=== PATIENT | male | born 1980 | race Caucasian/White ===

== ENCOUNTER 2018-06-16 13:10 | Emergency (ER) | payer SELFPAY ==
[~2018-06-16] VITALS: Ht 175.3 cm; Wt 104.5 kg
[2018-06-16 13:13] VITALS: TEMP 97.3
[2018-06-16 13:54] LABS: BASO # 0.1 (0.0-0.2); BASO % 0.7 % (0.0-2.0); EOS # 0.2 (0.0-0.7); EOS % 2.6 % (0-4.0); GRAN # 4.1 (1.4-6.5); GRAN % 47.6 % (42.2-75.2); HEMATOCRIT 44.4 % (42.0-52.0); HEMOGLOBIN 15.2 g/dl (13.5-18.0); LYMPH # 3.6 (1.2-3.4); LYMPH % 41.6 % (20.0-51.0); MEAN CELL VOLUME 94 fl (80.0-100.0); MEAN CORPUSCULAR HEMOGLOBIN 32 pg (27.0-31.0); MEAN CORPUSCULAR HGB CONC 34 g/dl (33.0-37.0); MEAN PLATELET VOLUME 9.7 fl (7.4-10.4); MONO # 0.6 (0.1-0.6); MONO % 6.8 % (1.7-9.3); PLATELET COUNT 318 K/mm3 (130-400); RED BLOOD COUNT 4.75 M/mm3 (4.20-5.60); REDCELL DISTRIBUTION WIDTH-CV 11.9 % (11.5-14.5)
[2018-06-16 13:56] LABS: COLLECTION METHOD CLEAN CATCH
[2018-06-16 14:01] LABS: PH 5 (5-8); SQUAMOUS EPITHELIAL None Seen /hpf; URINE APPEARANCE Clear; URINE BACTERIA None Seen /hpf; URINE BILIRUBIN Negative (NEGATIVE); URINE BLOOD Negative (NEGATIVE); URINE COLOR Colorless; URINE GLUCOSE Negative (NEGATIVE); URINE KETONE Negative (NEGATIVE); URINE LEUKOCYTE ESTERASE Negative (NEGATIVE); URINE NITRATE Negative (NEGATIVE); URINE PROTEIN(semi-quant) Negative (NEGATIVE); URINE RBC 0-2 /hpf; URINE UROBILINOGEN Negative (NEGATIVE)
[2018-06-16 14:05] LABS: ALANINE AMINOTRANSFERASE 44 U/L (21-72); ALBUMIN 4.6 gm/dL (3.5-5.0); ALCOHOL(ethanol),MEDICAL 246 mg/dL; ALKALINE PHOSPHATASE 63 U/L (50-136); ANION GAP 10 mmol/L (7-16); AST,SGOT 40 U/L (15-37); BILIRUBIN,TOTAL 0.4 mg/dL (0.0-1.0); BLOOD UREA NITROGEN 13 mg/dL (9-20); CALCIUM 9.1 mg/dL (8.4-10.2); CARBON DIOXIDE 22 mmol/L (22-30); CHLORIDE 111 mmol/L (98-107); CREATININE, serum 0.74 mg/dL (0.66-1.25); GLUCOSE 88 mg/dL (74-106); LIPASE 132 U/L (23-300); MAGNESIUM 2.2 mg/dL (1.6-2.3); POTASSIUM 4.5 mmol/L (3.4-5.0); SODIUM 143 mmol/L (137-145); TOTAL PROTEIN 8.5 gm/dL (6.4-8.2)
[2018-06-16 14:07] LABS: ACETAMINOPHEN < 10 ug/mL (10-30); SALICYLATE < 1.0 mg/dL
[2018-06-16 14:10] LABS: TRICYCLIC ANTIDEPRESS URINE NEGATIVE
[2018-06-16 14:35] LABS: TSH w REFLEX 0.351 uIU/mL (0.465-4.680)
[2018-06-16 23:47] VITALS: BP 137/72; PULSE 106
== END 2018-06-16 23:48 | disposition home or self-care (01) ==
LOC: COL.ER 13:10
PROVIDERS: Emergency Medicine
DX: F20.0 Paranoid schizophrenia (principal); F10.129 Alcohol abuse with intoxication, unspecified; Y90.3 Blood alcohol level of 60-79 mg/100 ml
CPT/HCPCS: J3411; J7030

== ENCOUNTER 2019-05-10 03:23 | Emergency (ER) | payer SELFPAY ==
[~2019-05-10] VITALS: Ht 180.3 cm; Wt 86.4 kg
[2019-05-10 03:30] VITALS: TEMP 97.6
[2019-05-10] MEDS ORDERED: LIBRIUM 25M25 MG/CAP PO ×2 (03:36→07:00)
[2019-05-10] MEDS ORDERED: NEURONTIN300 MG/CAP PO (03:36)
[2019-05-10 04:03] LABS: HEMATOCRIT 45.8 % (42.0-52.0); HEMOGLOBIN 15.5 g/dl (13.5-18.0); MEAN CELL VOLUME 97 fl (80.0-100.0); MEAN CORPUSCULAR HEMOGLOBIN 33 pg (27.0-31.0); MEAN CORPUSCULAR HGB CONC 34 g/dl (33.0-37.0); MEAN PLATELET VOLUME 9.6 fl (7.4-10.4); PLATELET COUNT 237 K/mm3 (130-400); RED BLOOD COUNT 4.73 M/mm3 (4.20-5.60); REDCELL DISTRIBUTION WIDTH-CV 12.4 % (11.5-14.5)
[2019-05-10 04:13] LABS: ALBUMIN 4.7 gm/dL (3.5-5.0); BILIRUBIN,TOTAL 0.3 mg/dL (0.0-1.0); CALCIUM 9.7 mg/dL (8.4-10.2); CREATININE, serum 0.98 (0.66-1.25); POTASSIUM 4.2 mmol/L (3.4-5.0); TOTAL PROTEIN 8.7 gm/dL (6.4-8.2)
[2019-05-10 04:44] LABS: BAND 1 % (0-10); EOSINOPHIL 1 % (0-4); LYMPHOCYTE 56 % (20.0-51.0); NEUTROPHILS 38 % (42.0-75.2); PLATELET ESTIMATE NORMAL (NORMAL)
[2019-05-10 06:03] LABS: ACETAMINOPHEN < 10 ug/mL (10-30)
--- NOTE | 2019-05-10 10:24 | NUR ---
KAY bassett responded to a social service manager consult for the patient due to the patient being interested in alcohol detox. KYA bassett met with the patient and provided a list of local outpatient treatment options and inpatient detox/treatment options. KAY bassett contacted [facility] in [place] and they do not have bed available. KAY bassett contacted [facility] in [place] and they report they do have a bed. The patient has to provide his own transportation. The patient reports that his landlord, Toño Savage may be able to provide transportation and will contact him upon discharge. The patient's dad lives in but he did not want to call him. The patient is self-pay. KAY bassett contacted Zoë Reynolds financial counselor and she met with the patient and provided an FAA application. KAY bassett collaborated the above information with the patient's nurse.
[2019-05-10 11:07] VITALS: BP 134/85; PULSE 96
== END 2019-05-10 11:10 | disposition home or self-care (01) ==
LOC: COL.ER 03:23
PROVIDERS: Emergency Medicine
DX: F10.220 Alcohol dependence with intoxication, uncomplicated (principal); Y90.8 Blood alcohol level of 240 mg/100 ml or more
CPT/HCPCS: J2405; J3411; J7030

== ENCOUNTER 2019-07-24 04:03 | Emergency (ER) | payer SELFPAY ==
[~2019-07-24] VITALS: Ht 175.3 cm; Wt 89.5 kg
[~2019-07-24 04:03] MED LIST: LIBRIUM 25M25 MG/CAP PO; NEURONTIN300 MG/CAP PO
[2019-07-24 04:04] VITALS: BP 137/90; TEMP 98.4
[2019-07-24 04:40] LABS: BASO # 0.1 (0.0-0.2); BASO % 0.8 % (0.0-2.0); EOS # 0.2 (0.0-0.7); GRAN # 2.8 (1.4-6.5); HEMATOCRIT 43.8 % (42.0-52.0); HEMOGLOBIN 15.2 g/dl (13.5-18.0); LYMPH # 4.5 (1.2-3.4); MEAN CELL VOLUME 96 fl (80.0-100.0); MEAN CORPUSCULAR HEMOGLOBIN 33 pg (27.0-31.0); MEAN CORPUSCULAR HGB CONC 35 g/dl (33.0-37.0); MEAN PLATELET VOLUME 9.8 fl (7.4-10.4); MONO # 0.7 (0.1-0.6); MONO % 8.8 % (1.7-9.3); PLATELET COUNT 260 K/mm3 (130-400); RED BLOOD COUNT 4.58 M/mm3 (4.20-5.60); REDCELL DISTRIBUTION WIDTH-CV 12.4 % (11.5-14.5)
[2019-07-24 04:46] LABS: ALBUMIN 4.5 gm/dL (3.5-5.0); BILIRUBIN,TOTAL 0.3 mg/dL (0.0-1.0); CALCIUM 8.8 mg/dL (8.4-10.2); CREATININE, serum 0.78 (0.66-1.25); POTASSIUM 4.1 mmol/L (3.4-5.0); TOTAL PROTEIN 8.1 gm/dL (6.4-8.2)
[2019-07-24 09:50] LABS: TRICYCLIC ANTIDEPRESS URINE NEGATIVE
[2019-07-24 13:46] VITALS: PULSE 78
== END 2019-07-24 13:39 | disposition home or self-care (01) ==
LOC: COL.ER 04:03
PROVIDERS: Emergency Medicine
DX: F10.129 Alcohol abuse with intoxication, unspecified (principal); F29 Unspecified psychosis not due to a substance or known physiological condition; F17.210 Nicotine dependence, cigarettes, uncomplicated; Y90.4 Blood alcohol level of 80-99 mg/100 ml
CPT/HCPCS: J1200; J1630; J7030

== ENCOUNTER 2019-09-28 09:11 | Emergency (ER) | payer SELFPAY ==
[~2019-09-28] VITALS: Ht 165.1 cm; Wt 95.5 kg
[2019-09-28 09:11] VITALS: TEMP 97.9
[2019-09-28 09:48] LABS: BASO # 0.1 (0.0-0.2); BASO % 0.8 % (0.0-2.0); EOS # 0.2 (0.0-0.7); EOS % 2.3 % (0-4.0); GRAN # 3.3 (1.4-6.5); GRAN % 51.3 % (42.2-75.2); HEMATOCRIT 43.1 % (42.0-52.0); HEMOGLOBIN 14.8 g/dl (13.5-18.0); LYMPH # 2.3 (1.2-3.4); LYMPH % 35.6 % (20.0-51.0); MEAN CELL VOLUME 96 fl (80.0-100.0); MEAN CORPUSCULAR HEMOGLOBIN 33 pg (27.0-31.0); MEAN CORPUSCULAR HGB CONC 34 g/dl (33.0-37.0); MEAN PLATELET VOLUME 9.7 fl (7.4-10.4); MONO # 0.6 (0.1-0.6); MONO % 9.1 % (1.7-9.3); PLATELET COUNT 166 K/mm3 (130-400); RED BLOOD COUNT 4.49 M/mm3 (4.20-5.60); REDCELL DISTRIBUTION WIDTH-CV 12.5 % (11.5-14.5)
[2019-09-28 09:56] LABS: ALBUMIN 4.4 gm/dL (3.5-5.0); BILIRUBIN,TOTAL 0.6 mg/dL (0.0-1.0); CALCIUM 9.9 mg/dL (8.4-10.2); CREATININE, serum 0.78 (0.66-1.25); POTASSIUM 3.6 mmol/L (3.4-5.0)
[2019-09-28 10:35] LABS: COLLECTION METHOD CLEAN CATCH
[2019-09-28] MEDS ORDERED: LIBRIUM 25M25 MG/CAP PO (10:41)
[2019-09-28] MEDS ORDERED: NEURONTIN300 MG/CAP PO (10:41)
[2019-09-28 10:49] LABS: PH 7 (5-8); SQUAMOUS EPITHELIAL None Seen /hpf; URINE APPEARANCE Clear; URINE BACTERIA None Seen /hpf; URINE BILIRUBIN Negative (NEGATIVE); URINE BLOOD Negative (NEGATIVE); URINE COLOR Yellow; URINE GLUCOSE Negative (NEGATIVE); URINE KETONE Trace (NEGATIVE); URINE LEUKOCYTE ESTERASE Negative (NEGATIVE); URINE NITRATE Negative (NEGATIVE); URINE PROTEIN(semi-quant) Negative (NEGATIVE); URINE RBC None Seen /hpf; URINE UROBILINOGEN Negative (NEGATIVE)
[2019-09-28 11:39] LABS: TRICYCLIC ANTIDEPRESS URINE NEGATIVE
[2019-09-28 11:55] VITALS: BP 134/74; PULSE 76
== END 2019-09-28 11:55 | disposition home or self-care (01) ==
LOC: COL.ER 09:11
PROVIDERS: Physician Assistant
DX: F10.231 Alcohol dependence with withdrawal delirium (principal); F31.9 Bipolar disorder, unspecified; F17.210 Nicotine dependence, cigarettes, uncomplicated; Y90.0 Blood alcohol level of less than 20 mg/100 ml
CPT/HCPCS: J1630; J2060; J2405; J7030

== ENCOUNTER 2021-02-26 03:21 | Emergency (ER) | payer SELFPAY ==
[~2021-02-26] VITALS: Ht 177.8 cm; Wt 113.6 kg
[2021-02-26 03:25] VITALS: TEMP 97.8
[2021-02-26 03:42] LABS: BASO # 0.1 (0.0-0.2); BASO % 0.7 % (0.0-2.0); EOS # 0.1 (0.0-0.7); EOS % 0.6 % (0-4.0); GRAN # 8.1 (1.4-6.5); GRAN % 65.9 % (42.2-75.2); HEMATOCRIT 40.9 % (42.0-52.0); HEMOGLOBIN 13.9 g/dl (13.5-18.0); LYMPH # 2.9 (1.2-3.4); LYMPH % 23.7 % (20.0-51.0); MEAN CELL VOLUME 94 fl (80.0-100.0); MEAN CORPUSCULAR HEMOGLOBIN 32 pg (27.0-31.0); MEAN CORPUSCULAR HGB CONC 34 g/dl (33.0-37.0); MEAN PLATELET VOLUME 9.5 fl (7.4-10.4); MONO # 1.1 (0.1-0.6); MONO % 8.7 % (1.7-9.3); PLATELET COUNT 236 K/mm3 (130-400); RED BLOOD COUNT 4.37 M/mm3 (4.20-5.60); REDCELL DISTRIBUTION WIDTH-CV 13.7 % (11.5-14.5)
[2021-02-26 04:47] LABS: ALANINE AMINOTRANSFERASE 52 U/L (0-55); ALBUMIN 4.1 gm/dL (3.5-5.0); ALKALINE PHOSPHATASE 50 U/L (0-750); ANION GAP 14 mmol/L; AST,SGOT 62 U/L (5-34); BILIRUBIN,TOTAL 1.3 mg/dL (0.2-1.2); CARBON DIOXIDE 19 mEq/L (22-29); CHLORIDE 106 mmol/L (98-107); CREATININE, serum 0.93 mg/dL (0.72-1.25); GLUCOSE 106 mg/dL (70-99); POTASSIUM 3.2 mmol/L (3.5-4.5); SODIUM 139 mmol/L (136-145); TOTAL PROTEIN 7.8 gm/dL (6.2-8.1)
[2021-02-26 04:48] LABS: ACETAMINOPHEN < 1.0 ug/mL (10-30); ALCOHOL(ethanol),MEDICAL < 10 mg/dL (0-10); SALICYLATE < 5.0 mg/dL (15.0-30.0)
[2021-02-26 05:13] LABS: BLOOD UREA NITROGEN 15 mg/dL (9-20)
[2021-02-26 05:26] VITALS: BP 154/70; PULSE 76
== END 2021-02-26 05:26 | disposition home or self-care (01) ==
LOC: COL.ER 03:21
PROVIDERS: Emergency Medicine
DX: F10.129 Alcohol abuse with intoxication, unspecified (principal); E86.0 Dehydration; G47.00 Insomnia, unspecified; R00.0 Tachycardia, unspecified; F19.10 Other psychoactive substance abuse, uncomplicated; F17.210 Nicotine dependence, cigarettes, uncomplicated
CPT/HCPCS: J7030

== ENCOUNTER 2021-02-26 19:54 | Emergency (ER) | payer SELFPAY ==
[~2021-02-26] VITALS: Ht 177.8 cm; Wt 109.1 kg
[2021-02-26 20:01] VITALS: TEMP 98.1
[2021-02-26 20:43] LABS: COLLECTION METHOD CLEAN CATCH
[2021-02-26 20:46] LABS: BASO # 0.1 (0.0-0.2); BASO % 0.7 % (0.0-2.0); EOS # 0.1 (0.0-0.7); EOS % 1.1 % (0-4.0); GRAN # 7.8 (1.4-6.5); GRAN % 63.7 % (42.2-75.2); HEMATOCRIT 41.4 % (42.0-52.0); HEMOGLOBIN 14.1 g/dl (13.5-18.0); LYMPH # 3.1 (1.2-3.4); LYMPH % 25.2 % (20.0-51.0); MEAN CELL VOLUME 94 fl (80.0-100.0); MEAN CORPUSCULAR HEMOGLOBIN 32 pg (27.0-31.0); MEAN CORPUSCULAR HGB CONC 34 g/dl (33.0-37.0); MEAN PLATELET VOLUME 9.6 fl (7.4-10.4); MONO # 1.1 (0.1-0.6); MONO % 8.8 % (1.7-9.3); PLATELET COUNT 256 K/mm3 (130-400); RED BLOOD COUNT 4.39 M/mm3 (4.20-5.60); REDCELL DISTRIBUTION WIDTH-CV 13.4 % (11.5-14.5)
[2021-02-26 20:49] LABS: MUCOUS Present /lpf; PH 5 (5-8); SQUAMOUS EPITHELIAL 0-2 /hpf; URINE APPEARANCE Clear; URINE BACTERIA None Seen /hpf; URINE BILIRUBIN Negative (NEGATIVE); URINE BLOOD Negative (NEGATIVE); URINE COLOR Yellow; URINE GLUCOSE Negative (NEGATIVE); URINE KETONE 1+ (NEGATIVE); URINE LEUKOCYTE ESTERASE Negative (NEGATIVE); URINE NITRATE Negative (NEGATIVE); URINE PROTEIN(semi-quant) 1+ (NEGATIVE); URINE RBC 0-2 /hpf; URINE UROBILINOGEN >=4.0 mg/dL (NEGATIVE)
[2021-02-26 20:56] LABS: TRICYCLIC ANTIDEPRESS URINE NEGATIVE
[2021-02-26 21:06] LABS: ACETAMINOPHEN < 1.0 ug/mL (10-30); ALANINE AMINOTRANSFERASE 58 U/L (0-55); ALBUMIN 4.1 gm/dL (3.5-5.0); ALCOHOL(ethanol),MEDICAL < 10 mg/dL (0-10); ALKALINE PHOSPHATASE 46 U/L (0-750); ANION GAP 12 mmol/L; AST,SGOT 65 U/L (5-34); BILIRUBIN,TOTAL 1.1 mg/dL (0.2-1.2); BLOOD UREA NITROGEN 12 mg/dL (9-21); CALCIUM 9.2 mg/dL (8.4-10.2); CARBON DIOXIDE 22 mEq/L (22-29); CHLORIDE 107 mmol/L (98-107); CREATININE, serum 1.02 mg/dL (0.72-1.25); GLUCOSE 96 mg/dL (70-99); POTASSIUM 3.7 mmol/L (3.5-4.5); SALICYLATE < 5.0 mg/dL (15.0-30.0); SODIUM 141 mmol/L (136-145); TOTAL PROTEIN 7.9 gm/dL (6.2-8.1)
[2021-02-26 21:30] VITALS: BP 142/89; PULSE 106
== END 2021-02-26 21:30 | disposition left against medical advice (07) ==
LOC: COL.ER 19:54
PROVIDERS: Emergency Medicine
DX: F15.129 Other stimulant abuse with intoxication, unspecified (principal); F17.210 Nicotine dependence, cigarettes, uncomplicated

== ENCOUNTER 2021-05-28 19:45 | Emergency (ER) | payer SELFPAY ==
[~2021-05-28] VITALS: Ht 175.3 cm; Wt 104.5 kg
[2021-05-28 19:59] VITALS: BP 119/55; PULSE 110; TEMP 98.7
[2021-05-28 20:38] LABS: BASO # 0.1 K/mm3 (0.0-0.2); BASO % 0.5 % (0.0-2.0); EOS # 0.1 K/mm3 (0.0-0.7); EOS % 0.6 % (0.0-4.0); GRAN # 8.2 K/mm3 (1.4-6.5); GRAN % 67.2 % (42.2-75.2); HEMATOCRIT 44.3 % (42.0-52.0); HEMOGLOBIN 15.3 g/dl (13.5-18.0); LYMPH # 2.6 K/mm3 (1.2-3.4); LYMPH % 21.1 % (20.0-51.0); MEAN CELL VOLUME 93 fl (80.0-100.0); MEAN CORPUSCULAR HEMOGLOBIN 32 pg (27-31); MEAN CORPUSCULAR HGB CONC 35 g/dl (33.0-37.0); MEAN PLATELET VOLUME 9.5 fl (7.4-10.4); MONO # 1.2 K/mm3 (0.1-0.6); MONO % 10.2 % (1.7-9.3); PLATELET COUNT 273 K/mm3 (130-400); RED BLOOD COUNT 4.78 M/mm3 (4.20-5.60)
[2021-05-28 20:44] LABS: COLLECTION METHOD CLEAN CATCH
[2021-05-28 20:55] LABS: MUCOUS Present (NOT PRESENT); PH 6 (5-8); SQUAMOUS EPITHELIAL 0-2 /hpf (0-10); URINE APPEARANCE Hazy (CLEAR/HAZY); URINE BACTERIA None Seen /hpf (NONE SEEN); URINE BILIRUBIN Negative (NEGATIVE); URINE BLOOD Negative (NEGATIVE); URINE COLOR Yellow (YELLOW); URINE GLUCOSE Negative (NEGATIVE); URINE KETONE Trace (NEGATIVE); URINE LEUKOCYTE ESTERASE Negative (NEGATIVE); URINE NITRATE Negative (NEGATIVE); URINE PROTEIN(semi-quant) 2+ (NEGATIVE); URINE RBC 0-2 /hpf (0-2); URINE UROBILINOGEN Negative (NEGATIVE)
[2021-05-28 20:59] LABS: ALANINE AMINOTRANSFERASE 58 U/L (0-55); ALBUMIN 4.7 gm/dL (3.5-5.0); ALKALINE PHOSPHATASE 47 U/L (40-150); ANION GAP 15 mmol/L (7-16); AST,SGOT 40 U/L (5-34); BILIRUBIN,TOTAL 1.1 mg/dL (0.2-1.2); BLOOD UREA NITROGEN 14 mg/dL (9-21); CALCIUM 9.6 mg/dL (8.4-10.2); CARBON DIOXIDE 23 mmol/L (22-29); CHLORIDE 103 mmol/L (98-107); CREATININE, serum 1.01 mg/dL (0.72-1.25); GLUCOSE 106 mg/dL (70-99); POTASSIUM 3.6 mmol/L (3.5-4.5); SODIUM 141 mmol/L (136-145); TOTAL PROTEIN 8.5 gm/dL (6.2-8.1)
[2021-05-28 21:01] LABS: TRICYCLIC ANTIDEPRESS URINE NEGATIVE
[2021-05-28 21:06] LABS: ACETAMINOPHEN < 1.0 ug/mL (10-30); ALCOHOL(ethanol),MEDICAL < 10 mg/dL (0-10); SALICYLATE < 5.0 mg/dL (15.0-30.0)
== END 2021-05-28 23:15 | disposition home or self-care (01) ==
LOC: COL.ER 19:45
PROVIDERS: Nurse Practitioner Primary Care
DX: R44.0 Auditory hallucinations (principal); R44.1 Visual hallucinations; F15.10 Other stimulant abuse, uncomplicated; F10.10 Alcohol abuse, uncomplicated; F17.210 Nicotine dependence, cigarettes, uncomplicated

== ENCOUNTER 2022-02-15 09:45 | Emergency (ER) | payer SELFPAY ==
[~2022-02-15] VITALS: Ht 175.3 cm; Wt 109.1 kg
[2022-02-15 10:02] VITALS: BP 116/56; TEMP 97
[2022-02-15 10:57] LABS: BASO # 0.1 K/mm3 (0.0-0.2); BASO % 0.8 % (0.0-2.0); EOS # 0.3 K/mm3 (0.0-0.7); GRAN # 4.6 K/mm3 (1.4-6.5); GRAN % 53.9 % (42.2-75.2); HEMATOCRIT 41.9 % (42.0-52.0); HEMOGLOBIN 14.4 g/dl (13.5-18.0); LYMPH # 2.7 K/mm3 (1.2-3.4); LYMPH % 31.4 % (20.0-51.0); MEAN CELL VOLUME 93 fl (80.0-100.0); MEAN CORPUSCULAR HEMOGLOBIN 32 pg (27-31); MEAN CORPUSCULAR HGB CONC 34 g/dl (33.0-37.0); MEAN PLATELET VOLUME 9.8 fl (7.4-10.4); MONO # 0.9 K/mm3 (0.1-0.6); MONO % 10.1 % (1.7-9.3); PLATELET COUNT 279 K/mm3 (130-400); RED BLOOD COUNT 4.52 M/mm3 (4.20-5.60); REDCELL DISTRIBUTION WIDTH-CV 12.7 % (11.5-14.5)
[2022-02-15 11:16] LABS: ALBUMIN 3.8 gm/dL (3.5-5.0); BILIRUBIN,TOTAL 0.6 mg/dL (0.2-1.2); C-REACTIVE PROTEIN 0.62 mg/dL (0.00-0.50); CALCIUM 9.4 mg/dL (8.4-10.2); CREATININE, serum 0.92 mg/dL (0.72-1.25); POTASSIUM 4.1 mmol/L (3.5-4.5); TOTAL PROTEIN 7.4 gm/dL (6.2-8.1); URIC ACID 6.1 mg/dL (3.5-7.2)
[2022-02-15 11:19] LABS: ERYTHROCYTE SEDIMENTATION RATE 4 mm/hr (0-15)
[2022-02-15] MEDS ORDERED: BACTRIM DS 8001 TAB PO (11:52)
[2022-02-15 11:56] VITALS: PULSE 74
== END 2022-02-15 20:53 | disposition home or self-care (01) ==
LOC: COL.ER 09:45
PROVIDERS: Nurse Practitioner
DX: L03.031 Cellulitis of right toe (principal)

== ENCOUNTER 2022-04-07 22:38 | Emergency (ER) | payer SELFPAY ==
[~2022-04-07] VITALS: Ht 170.2 cm; Wt 113.6 kg
[~2022-04-07 22:38] MED LIST changes: +BACTRIM DS 8001 TAB PO
[2022-04-07 22:45] VITALS: TEMP 98
[2022-04-07 23:31] LABS: HEMATOCRIT 41.9 % (42.0-52.0); HEMOGLOBIN 14.8 g/dl (13.5-18.0); MEAN CELL VOLUME 90 fl (80.0-100.0); MEAN CORPUSCULAR HEMOGLOBIN 32 pg (27-31); MEAN CORPUSCULAR HGB CONC 35 g/dl (33.0-37.0); MEAN PLATELET VOLUME 9.3 fl (7.4-10.4); PLATELET COUNT 307 K/mm3 (130-400); RED BLOOD COUNT 4.67 M/mm3 (4.20-5.60); REDCELL DISTRIBUTION WIDTH-CV 12.4 % (11.5-14.5)
[2022-04-07 23:56] LABS: ALANINE AMINOTRANSFERASE 61 U/L (0-55); ALBUMIN 3.7 gm/dL (3.5-5.0); ALKALINE PHOSPHATASE 50 U/L (40-150); ANION GAP 13 mmol/L (7-16); AST,SGOT 37 U/L (5-34); BILIRUBIN,TOTAL 0.2 mg/dL (0.2-1.2); BLOOD UREA NITROGEN 9 mg/dL (9-21); CALCIUM 8.8 mg/dL (8.4-10.2); CARBON DIOXIDE 23 mmol/L (22-29); CHLORIDE 108 mmol/L (98-107); CREATININE, serum 0.91 mg/dL (0.72-1.25); GLUCOSE 119 mg/dL (70-99); POTASSIUM 3.5 mmol/L (3.5-4.5); SODIUM 144 mmol/L (136-145); TOTAL PROTEIN 7.6 gm/dL (6.2-8.1)
[2022-04-08] LABS: ACETAMINOPHEN < 1.0 ug/mL (10-30); ALCOHOL(ethanol),MEDICAL 329 mg/dL (0-10); SALICYLATE < 5.0 mg/dL (15.0-30.0)
[2022-04-08 00:13] LABS: LYMPHOCYTE 47 % (20.0-51.0); NEUTROPHILS 44 % (42.0-75.2)
[2022-04-08 00:14] LABS: PLATELET ESTIMATE NORMAL (NORMAL)
[2022-04-08 05:01] LABS: TRICYCLIC ANTIDEPRESS URINE NEGATIVE
[2022-04-08] MEDS ORDERED: ATIVAN 1MG T1 MG/TAB PO (14:58)
[2022-04-08 15:59] VITALS: BP 131/71; PULSE 82
== END 2022-04-08 16:00 | disposition home or self-care (01) ==
LOC: COL.ER 22:38
PROVIDERS: Nurse Practitioner
DX: R44.0 Auditory hallucinations (principal); F17.210 Nicotine dependence, cigarettes, uncomplicated; F17.290 Nicotine dependence, other tobacco product, uncomplicated; Z28.310 Unvaccinated for COVID-19; Z20.822 Contact with and (suspected) exposure to COVID-19

== ENCOUNTER 2022-08-15 03:54 | Emergency (ER) | payer SELFPAY ==
[~2022-08-15] VITALS: Ht 170.2 cm; Wt 113.6 kg
[~2022-08-15 03:54] MED LIST changes: +ATIVAN 1MG T1 MG/TAB PO
[2022-08-15 03:58] VITALS: TEMP 98.5
[2022-08-15 04:21] LABS: COLLECTION METHOD CLEAN CATCH
[2022-08-15 04:24] LABS: HEMATOCRIT 42.9 % (42.0-52.0); HEMOGLOBIN 15.6 g/dl (13.5-18.0); MEAN CELL VOLUME 90 fl (80.0-100.0); MEAN CORPUSCULAR HEMOGLOBIN 33 pg (27-31); MEAN CORPUSCULAR HGB CONC 36 g/dl (33.0-37.0); MEAN PLATELET VOLUME 9.7 fl (7.4-10.4); PLATELET COUNT 332 K/mm3 (130-400); RED BLOOD COUNT 4.75 M/mm3 (4.20-5.60)
[2022-08-15 04:31] LABS: PH 5.5 (5.0-8.5); URINE APPEARANCE Clear (CLEAR/HAZY); URINE BLOOD Negative (NEGATIVE); URINE COLOR Yellow (YELLOW); URINE GLUCOSE Negative (NEGATIVE); URINE KETONE Negative (NEGATIVE); URINE NITRATE Negative (NEGATIVE); URINE PROTEIN(semi-quant) Negative (NEGATIVE); URINE UROBILINOGEN 0.2 E.U/dL (0.2-1.0)
[2022-08-15 04:39] LABS: SQUAMOUS EPITHELIAL 0-2 /hpf (0-10); URINE BACTERIA None Seen /hpf (NONE SEEN); URINE RBC 0-2 /hpf (0-2)
[2022-08-15 04:42] LABS: TRICYCLIC ANTIDEPRESS URINE NEGATIVE
[2022-08-15 04:45] LABS: ACETAMINOPHEN < 1.0 ug/mL (10-30); ALANINE AMINOTRANSFERASE 39 U/L (0-55); ALCOHOL(ethanol),MEDICAL 181 mg/dL (0-10); ALKALINE PHOSPHATASE 57 U/L (40-150); ANION GAP 13 mmol/L (7-16); AST,SGOT 24 U/L (5-34); BILIRUBIN,TOTAL 0.1 mg/dL (0.2-1.2); BLOOD UREA NITROGEN 12 mg/dL (9-21); CALCIUM 9.4 mg/dL (8.4-10.2); CARBON DIOXIDE 18 mmol/L (22-29); CHLORIDE 111 mmol/L (98-107); CREATININE, serum 0.93 mg/dL (0.72-1.25); GLUCOSE 115 mg/dL (70-99); SALICYLATE < 5.0 mg/dL (15.0-30.0); SODIUM 142 mmol/L (136-145); TOTAL PROTEIN 8.1 gm/dL (6.2-8.1)
[2022-08-15 04:51] LABS: EOSINOPHIL 3 % (0-4); LYMPHOCYTE 46 % (20.0-51.0); NEUTROPHILS 45 % (42.0-75.2)
[2022-08-15 04:52] LABS: PLATELET ESTIMATE NORMAL (NORMAL)
[2022-08-15 08:31] VITALS: BP 128/80; PULSE 89
== END 2022-08-15 08:32 | disposition home or self-care (01) ==
LOC: COL.ER 03:54
PROVIDERS: Emergency Medicine
DX: R45.851 Suicidal ideations (principal)

== ENCOUNTER 2023-06-04 08:26 | Emergency (ER) | payer SELFPAY ==
[~2023-06-04] VITALS: Ht 175.3 cm; Wt 109.1 kg
[2023-06-04 08:26] VITALS: TEMP 97.7
[2023-06-04 09:19] LABS: TRICYCLIC ANTIDEPRESS URINE NEGATIVE
[2023-06-04 09:27] LABS: BASO # 0.1 K/mm3 (0.0-0.2); BASO % 0.7 % (0.0-2.0); EOS # 0.1 K/mm3 (0.0-0.7); EOS % 1.4 % (0.0-4.0); GRAN # 3.9 K/mm3 (1.4-6.5); GRAN % 54.7 % (42.2-75.2); HEMATOCRIT 42.7 % (42.0-52.0); HEMOGLOBIN 15.1 g/dl (13.5-18.0); LYMPH # 2.3 K/mm3 (1.2-3.4); LYMPH % 31.9 % (20.0-51.0); MEAN CELL VOLUME 91 fl (80.0-100.0); MEAN CORPUSCULAR HEMOGLOBIN 32 pg (27-31); MEAN CORPUSCULAR HGB CONC 35 g/dl (33.0-37.0); MEAN PLATELET VOLUME 9.4 fl (7.4-10.4); MONO # 0.7 K/mm3 (0.1-0.6); MONO % 10.5 % (1.7-9.3); PLATELET COUNT 220 K/mm3 (130-400); RED BLOOD COUNT 4.68 M/mm3 (4.20-5.60)
[2023-06-04 09:42] LABS: BILIRUBIN,TOTAL 0.3 mg/dL (0.2-1.2); CALCIUM 8.8 mg/dL (8.4-10.2); CREATININE, serum 0.81 mg/dL (0.72-1.25); POTASSIUM 4.1 mmol/L (3.5-4.5); TOTAL PROTEIN 7.4 gm/dL (6.2-8.1)
[2023-06-04 12:23] VITALS: BP 117/82; PULSE 61
== END 2023-06-04 12:47 | disposition left against medical advice (07) ==
LOC: COL.ER 08:26
PROVIDERS: Personal Emergency Response Attendant
DX: F29 Unspecified psychosis not due to a substance or known physiological condition (principal); F10.20 Alcohol dependence, uncomplicated; Y90.6 Blood alcohol level of 120-199 mg/100 ml

== ENCOUNTER 2023-07-25 01:25 | Emergency (ER) | payer SELFPAY ==
[~2023-07-25] VITALS: Ht 182.9 cm; Wt 113.6 kg
[2023-07-25 01:46] VITALS: BP 146/97; PULSE 108; TEMP 97
== END 2023-07-25 02:00 ==
LOC: COL.ER 01:25
DX: F10.129 Alcohol abuse with intoxication, unspecified (principal)

== ENCOUNTER 2023-09-27 10:27 | Emergency (ER) | payer SELFPAY ==
[~2023-09-27] VITALS: Ht 167.6 cm; Wt 109.1 kg
[2023-09-27 10:40] VITALS: BP 132/86; PULSE 106; TEMP 98.2
[2023-09-27 11:08] LABS: COLLECTION METHOD CLEAN CATCH
[2023-09-27 11:12] LABS: BASO # 0.1 K/mm3 (0.0-0.2); BASO % 0.6 % (0.0-2.0); EOS # 0.1 K/mm3 (0.0-0.7); EOS % 1.1 % (0.0-4.0); GRAN # 8.1 K/mm3 (1.4-6.5); GRAN % 65.7 % (42.2-75.2); HEMATOCRIT 42.4 % (42.0-52.0); LYMPH # 2.9 K/mm3 (1.2-3.4); LYMPH % 23.4 % (20.0-51.0); MEAN CELL VOLUME 92 fl (80.0-100.0); MEAN CORPUSCULAR HEMOGLOBIN 33 pg (27-31); MEAN CORPUSCULAR HGB CONC 35 g/dl (33.0-37.0); MEAN PLATELET VOLUME 9.7 fl (7.4-10.4); MONO # 1.1 K/mm3 (0.1-0.6); MONO % 8.7 % (1.7-9.3); PLATELET COUNT 261 K/mm3 (130-400); RED BLOOD COUNT 4.62 M/mm3 (4.20-5.60); REDCELL DISTRIBUTION WIDTH-CV 12.5 % (11.5-14.5)
[2023-09-27 11:19] LABS: PH 5.5 (5.0-8.5); URINE APPEARANCE CLEAR (CLEAR/HAZY); URINE BLOOD NEGATIVE (NEGATIVE); URINE COLOR Dark Yellow (YELLOW); URINE GLUCOSE NEGATIVE (NEGATIVE); URINE KETONE 2+ (NEGATIVE); URINE NITRATE NEGATIVE (NEGATIVE); URINE PROTEIN(semi-quant) 2+ (NEGATIVE)
[2023-09-27 11:29] LABS: ALANINE AMINOTRANSFERASE 59 U/L (0-55); ALBUMIN 4.2 g/dL (3.5-5.0); ALKALINE PHOSPHATASE 43 U/L (40-150); ANION GAP 15 mmol/L (7-16); AST,SGOT 67 U/L (5-34); BILIRUBIN,TOTAL 1.4 mg/dL (0.2-1.2); BLOOD UREA NITROGEN 15 mg/dL (9-21); CALCIUM 9.7 mg/dL (8.4-10.2); CHLORIDE 105 mEq/L (98-107); CREATININE, serum 1.01 mg/dL (0.72-1.25); GLUCOSE 100 mg/dL (70-99); POTASSIUM 3.7 mEq/L (3.5-4.5); SODIUM 143 mEq/L (136-145); TOTAL PROTEIN 8.4 g/dl (6.2-8.1)
[2023-09-27 11:30] LABS: ALCOHOL(ethanol),MEDICAL < 10 mg/dL (0-10); SALICYLATE < 5.0 mg/dL (15.0-30.0)
[2023-09-27 11:34] LABS: SQUAMOUS EPITHELIAL 0-2 /hpf (0-10); URINE BACTERIA NONE SEEN /hpf (NONE SEEN); URINE RBC 0-2 /hpf (0-2); URINE WBC 0-2 /hpf (0-2)
[2023-09-27 12:08] LABS: TRICYCLIC ANTIDEPRESS URINE NEGATIVE (NEGATIVE)
[2023-09-27] MEDS ORDERED: LORazepam 1 MG TAB PO ONE (12:45)
[2023-09-27] MEDS ORDERED: OLANZapine 10 MG Orally-Disinteg TAB PO ONE (13:15)
== END 2023-09-27 13:34 | disposition left against medical advice (07) ==
LOC: COL.ER 10:27
PROVIDERS: Physician Assistant
DX: F22 Delusional disorders (principal); D72.829 Elevated white blood cell count, unspecified

== ENCOUNTER 2023-12-07 23:31 | Emergency (ER) | payer SELFPAY ==
[~2023-12-07] VITALS: Ht 167.6 cm; Wt 113.6 kg
[2023-12-07 23:36] VITALS: TEMP 98.5
[2023-12-07 23:56] LABS: COLLECTION METHOD CLEAN CATCH
[2023-12-08] LABS: BASO # 0.1 K/mm3 (0.0-0.2); BASO % 0.7 % (0.0-2.0); EOS # 0.2 K/mm3 (0.0-0.7); EOS % 2.2 % (0.0-4.0); GRAN # 3.7 K/mm3 (1.4-6.5); GRAN % 49.4 % (42.2-75.2); HEMATOCRIT 40.3 % (42.0-52.0); HEMOGLOBIN 14.3 g/dl (13.5-18.0); LYMPH # 2.7 K/mm3 (1.2-3.4); LYMPH % 36.2 % (20.0-51.0); MEAN CELL VOLUME 90 fl (80.0-100.0); MEAN CORPUSCULAR HEMOGLOBIN 32 pg (27-31); MEAN CORPUSCULAR HGB CONC 36 g/dl (33.0-37.0); MEAN PLATELET VOLUME 9.8 fl (7.4-10.4); MONO # 0.8 K/mm3 (0.1-0.6); MONO % 11.2 % (1.7-9.3); PLATELET COUNT 237 K/mm3 (130-400); RED BLOOD COUNT 4.49 M/mm3 (4.20-5.60); REDCELL DISTRIBUTION WIDTH-CV 11.9 % (11.5-14.5)
[2023-12-08 00:20] LABS: ALANINE AMINOTRANSFERASE 42 U/L (0-55); ALBUMIN 4.2 g/dL (3.5-5.0); ALCOHOL(ethanol),MEDICAL < 10 mg/dL (0-10); ALKALINE PHOSPHATASE 44 U/L (40-150); ANION GAP 11 mmol/L (7-16); AST,SGOT 28 U/L (5-34); BLOOD UREA NITROGEN 14 mg/dL (9-21); CALCIUM 9.3 mg/dL (8.4-10.2); CHLORIDE 107 mEq/L (98-107); CREATININE, serum 0.86 mg/dL (0.72-1.25); GLUCOSE 100 mg/dL (70-99); POTASSIUM 3.6 mEq/L (3.5-4.5); SALICYLATE < 5.0 mg/dL (15.0-30.0); SODIUM 140 mEq/L (136-145); TOTAL PROTEIN 7.5 g/dl (6.2-8.1); TRICYCLIC ANTIDEPRESS URINE NEGATIVE (NEGATIVE)
[2023-12-08 00:29] LABS: BILIRUBIN,TOTAL 0.8 mg/dL (0.2-1.2)
[2023-12-08 00:31] LABS: PH 5.5 (5.0-8.5); URINE APPEARANCE CLEAR (CLEAR/HAZY); URINE BLOOD NEGATIVE (NEGATIVE); URINE COLOR Dark Yellow (YELLOW); URINE GLUCOSE NEGATIVE (NEGATIVE); URINE KETONE 1+ (NEGATIVE); URINE NITRATE NEGATIVE (NEGATIVE); URINE PROTEIN(semi-quant) TRACE (NEGATIVE)
[2023-12-08 02:27] VITALS: BP 123/62; PULSE 57
== END 2023-12-08 02:48 | disposition home or self-care (01) ==
LOC: COL.ER 23:31
PROVIDERS: Emergency Medicine
DX: R45.851 Suicidal ideations (principal)